=== PATIENT | female | born 1935 | race African-American/Black ===

== ENCOUNTER 2017-08-03 18:56 | Inpatient (IN) | payer MEDICARE, OTHER ==
[~2017-08-03] VITALS: Ht 160 cm; Wt 42.6 kg
[~2017-08-03 18:56] MED LIST: B1 PO; DAILY VITE PO; FOLI-43 PO; HYDR-523 PO; LEVO25TA7 PO
[2017-08-03] MEDS ORDERED: MORPHINE SULFATE 2 MG/ML CPJ (NOT FOR IM USE) IV ONE (20:30)
[2017-08-03 20:57] LABS: CLARITY URINE CLEAR (CLEAR); COLOR URINE YELLOW (YELLOW); KETONES URINE NEGATIVE (NEGATIVE); LEUKOCYTE ESTERASE URINE 3+ (NEGATIVE); NITRITE URINE NEGATIVE (NEGATIVE); OCCULT BLOOD URINE NEGATIVE (NEGATIVE); PROTEIN URINE NEGATIVE (NEGATIVE); SPECIFIC GRAVITY URINE 1.014 (1.005-1.030); UROBILINOGEN URINE 0.2 E.U./dL (0.2-1.0)
[2017-08-03 21:00] LABS: BASOPHILS % 0.2 % (0.0-2.0); EOSINOPHILS % 0.8 % (0.0-5.0); HEMATOCRIT. 40.2 % (36.0-48.0); HEMOGLOBIN. 13.1 g/dL (12.0-16.0); LYMPHOCYTES % 13.1 % (20.0-50.0); MEAN CORPUSCULAR HEMOGLOBIN 30.8 pg (28.0-32.0); MEAN CORPUSCULAR VOLUME 94.6 fL (81.0-99.0); MEAN PLATELET VOLUME 8.7 fl (7.4-10.4); NEUTROPHILS % 77.9 % (40.0-76.0); PLATELET 188 x1000/uL (130-400); RED BLOOD CELL COUNT 4.25 mill/uL (4.2-5.4); RED CELL DISTRIBUTION WIDTH 13.2 % (11.6-14.6)
[2017-08-03 21:06] LABS: INR 1.1; PARTIAL THROMBOPLASTIN TIME 25.4 sec (23.4-31.0)
[2017-08-03 21:08] LABS: CHLORIDE 99 mEq/L (98-107)
[2017-08-04] MEDS ORDERED: MORPHINE SULFATE 1MG/ML 1ML INJ SYR(NEO) IV ONE (00:30)
[2017-08-04] MEDS ORDERED: MORPHINE SULFATE 4 MG/ML CPJ (NOT FOR IM USE) IV NR (01:00)
[2017-08-04] MEDS: DEXT 5%/0.45% NACL KCL 10MEQ/L 1,000 ML IV SCH ×2 (02:13→15:33)
[2017-08-04] MEDS ORDERED: CLONIDINE 0.1MG TABLET PO PRN (02:15)
[2017-08-04] MEDS ORDERED: DOCUSATE SODIUM 100MG CAPSULE PO PRN (02:15)
[2017-08-04] MEDS ORDERED: HYDROCODONE/ACETAMINOPHEN 5/325MG TABLET PO PRN (02:15)
[2017-08-04] MEDS ORDERED: GUAIFENESIN 200MG/10ML SUGAR FREE UDC PO PRN (02:15)
[2017-08-04] MEDS ORDERED: ACETAMINOPHEN 325MG TABLET PO PRN (02:15)
[2017-08-04] MEDS ORDERED: ENOXAPARIN 40MG/0.4ML SYR SUBCUT SCH (02:15)
[2017-08-04] MEDS ORDERED: ONDANSETRON HCL 4MG/2ML VIAL IV PRN (02:15)
[2017-08-04] MEDS: MORPHINE SULFATE 4 MG/ML CPJ (NOT FOR IM USE) IV PRN ×2 (05:31→18:39)
[2017-08-04] MEDS ORDERED: AMLODIPINE 10MG TABLET PO NR (09:30)
[2017-08-04] MEDS: ENOXAPARIN 30MG/0.3ML SYR SUBCUT SCH (10:00)
[2017-08-04 16:00] VITALS: BP 129/63
[2017-08-04 20:00] VITALS: BP 117/60
[2017-08-05] VITALS: BP 122/60
[2017-08-05 04:00] VITALS: BP 107/62
[2017-08-05] MEDS: DEXT 5%/0.45% NACL KCL 10MEQ/L 1,000 ML IV SCH (05:04)
[2017-08-05 07:40] LABS: BASOPHILS % 0.2 % (0.0-2.0); EOSINOPHILS % 0.4 % (0.0-5.0); HEMOGLOBIN. 12.1 g/dL (12.0-16.0); LYMPHOCYTES % 10.8 % (20.0-50.0); MEAN CORPUSCULAR HEMOGLOBIN 31.5 pg (28.0-32.0); MEAN PLATELET VOLUME 9.6 fl (7.4-10.4); MONOCYTES % 10.4 % (2.0-8.0); NEUTROPHILS % 78.2 % (40.0-76.0); PLATELET 163 x1000/uL (130-400); RED BLOOD CELL COUNT 3.83 mill/uL (4.2-5.4)
[2017-08-05 07:43] LABS: CHLORIDE 102 mEq/L (98-107); HDL CHOLESTEROL 72 mg/dL (40-59); LDL CHOLESTEROL 52 mg/dL (5-100); T4 FREE 0.73 ng/dL (0.76-1.46)
[2017-08-05 08:00] VITALS: BP 126/54
[2017-08-05] MEDS: ENOXAPARIN 30MG/0.3ML SYR SUBCUT SCH (08:19)
[2017-08-05] MEDS ORDERED: AMLODIPINE 10MG TABLET PO SCH (09:00)
[2017-08-05] MEDS: AMLODIPINE 5MG TABLET PO SCH (10:00)
[2017-08-05] MEDS: MORPHINE SULFATE 4 MG/ML CPJ (NOT FOR IM USE) IV PRN ×2 (11:46→16:06)
[2017-08-05 12:00] VITALS: BP 126/63
[2017-08-05] MEDS: IPRATROPIUM/ALBUTEROL 0.5-3(2.5)MG/3ML NEB HHN SCH (13:09)
[2017-08-05 16:00] VITALS: BP 107/59
[2017-08-05 20:00] VITALS: BP 123/63
[2017-08-06] VITALS: BP 110/67
[2017-08-06] MEDS: DEXT 5%/0.45% NACL KCL 10MEQ/L 1,000 ML IV SCH ×2 (02:09→17:36)
[2017-08-06 04:00] VITALS: BP 120/85
[2017-08-06 08:00] VITALS: BP 120/54
[2017-08-06] MEDS: ENOXAPARIN 30MG/0.3ML SYR SUBCUT SCH (08:05)
[2017-08-06] MEDS: AMLODIPINE 5MG TABLET PO SCH (08:05)
[2017-08-06] MEDS: MORPHINE SULFATE 4 MG/ML CPJ (NOT FOR IM USE) IV PRN (09:02)
[2017-08-06] MEDS: IPRATROPIUM/ALBUTEROL 0.5-3(2.5)MG/3ML NEB HHN SCH ×2 (09:41→20:00)
[2017-08-06] MEDS: POTASSIUM CHLORIDE 20MEQ TABLET SR PO SCH (10:00)
[2017-08-06] MEDS: FUROSEMIDE 40MG TABLET PO SCH (10:00)
[2017-08-06] MEDS ORDERED: KCL 10MEQ/50ML PREMIX 50 ML IV NR (10:30)
[2017-08-06] MEDS ORDERED: NORMAL SALINE 0.9% 10 ML SYR ONE (11:04)
[2017-08-06] MEDS ORDERED: BUPIVACAINE HCL/EPINEPHRINE/PF 0.5%/0.0005 10ML ONE (11:05)
[2017-08-06] MEDS ORDERED: BACITRACIN 50,000 UNITS/VIAL ONE (11:05)
[2017-08-06] MEDS ORDERED: MIDAZOLAM HCL 2 MG/2 ML VIAL ONE (12:50)
[2017-08-06] MEDS ORDERED: PROPOFOL 10MG/ML 100ML 0 ML IV ONE (12:50)
[2017-08-06] MEDS ORDERED: FENTANYL CITRATE/PF 50MCG/ML 2ML VIAL ONE (12:50)
[2017-08-06] MEDS ORDERED: DOCUSATE SODIUM 100MG CAPSULE PO SCH (13:15)
[2017-08-06] MEDS ORDERED: ACETAMINOPHEN 325MG TABLET PO PRN (13:15)
[2017-08-06] MEDS ORDERED: MORPHINE SULFATE 4 MG/ML CPJ (NOT FOR IM USE) IV PRN (13:15)
[2017-08-06] MEDS ORDERED: MAGNESIUM HYDROXIDE 400MG/5ML 30ML UDC PO PRN (13:15)
[2017-08-06] MEDS ORDERED: PROPOFOL 200MG/20ML VIAL IV ONE (13:22)
[2017-08-06] MEDS ORDERED: SKIN ADHESIVE 0.7 GM EA TOP ONE (14:28)
[2017-08-06 16:00] VITALS: BP 110/52
[2017-08-06] MEDS ORDERED: MEPERIDINE HCL/PF 25MG/ML CPJ IV PRN (16:00)
[2017-08-06] MEDS ORDERED: ONDANSETRON HCL 4MG/2ML VIAL IV PRN (16:00)
[2017-08-06] MEDS ORDERED: FENTANYL CITRATE/PF 50MCG/ML 2ML VIAL IV PRN (16:00)
[2017-08-06] MEDS ORDERED: MORPHINE SULFATE 2 MG/ML CPJ (NOT FOR IM USE) IV PRN (16:00)
[2017-08-06 18:21] LABS: CHLORIDE 107 mEq/L (98-107)
[2017-08-06] MEDS: CEFAZOLIN 1000MG PREMIX 50 ML IV SCH ×2 (18:35→22:56)
[2017-08-06 20:00] VITALS: BP 117/58
[2017-08-06] MEDS: HYDROCODONE/ACETAMINOPHEN 5/325MG TABLET PO PRN (23:05)
[2017-08-07] VITALS: BP 106/59
[2017-08-07] MEDS: IPRATROPIUM/ALBUTEROL 0.5-3(2.5)MG/3ML NEB HHN SCH ×4 (00:45→20:37)
[2017-08-07 04:00] VITALS: BP 115/56
[2017-08-07] MEDS: CEFAZOLIN 1000MG PREMIX 50 ML IV SCH ×3 (06:19→22:13)
[2017-08-07] MEDS: DEXT 5%/0.45% NACL KCL 10MEQ/L 1,000 ML IV SCH ×2 (06:19→22:17)
[2017-08-07 06:51] LABS: BASOPHILS % 0.3 % (0.0-2.0); HEMATOCRIT. 30.4 % (36.0-48.0); HEMOGLOBIN. 10.2 g/dL (12.0-16.0); LYMPHOCYTES % 13.7 % (20.0-50.0); MEAN CORPUSCULAR HEMOGLOBIN 31.7 pg (28.0-32.0); MEAN CORPUSCULAR VOLUME 94.5 fL (81.0-99.0); MEAN PLATELET VOLUME 9.6 fl (7.4-10.4); PLATELET 139 x1000/uL (130-400); RED BLOOD CELL COUNT 3.22 mill/uL (4.2-5.4); RED CELL DISTRIBUTION WIDTH 13.4 % (11.6-14.6)
[2017-08-07 07:31] LABS: CHLORIDE 105 mEq/L (98-107)
[2017-08-07 08:00] VITALS: BP 105/51
[2017-08-07] MEDS ORDERED: ENOXAPARIN 30MG/0.3ML SYR SUBCUT SCH (09:00)
[2017-08-07] MEDS ORDERED: DOCUSATE SODIUM 250MG CAPSULE PO SCH (09:15)
[2017-08-07] MEDS: FUROSEMIDE 40MG TABLET PO SCH (09:30)
[2017-08-07] MEDS: AMLODIPINE 5MG TABLET PO SCH (09:31)
[2017-08-07] MEDS: POTASSIUM CHLORIDE 20MEQ TABLET SR PO SCH (09:33)
[2017-08-07] MEDS: ENOXAPARIN 30MG/0.3ML SYR SUBCUT SCH (09:41)
[2017-08-07 12:00] VITALS: BP 106/51
[2017-08-07] MEDS: HYDROCODONE/ACETAMINOPHEN 5/325MG TABLET PO PRN ×2 (12:47→20:53)
[2017-08-07 16:00] VITALS: BP 114/47
[2017-08-07 20:00] VITALS: BP 98/54
[2017-08-08] VITALS: BP 100/56
[2017-08-08] MEDS: IPRATROPIUM/ALBUTEROL 0.5-3(2.5)MG/3ML NEB HHN SCH ×4 (00:59→21:31)
[2017-08-08 04:00] VITALS: BP 107/51
[2017-08-08] MEDS: CEFAZOLIN 1000MG PREMIX 50 ML IV SCH ×3 (05:52→21:10)
[2017-08-08 06:38] LABS: BASOPHILS % 0.2 % (0.0-2.0); EOSINOPHILS % 4.1 % (0.0-5.0); HEMATOCRIT. 28.2 % (36.0-48.0); HEMOGLOBIN. 9.5 g/dL (12.0-16.0); LYMPHOCYTES % 16.1 % (20.0-50.0); MEAN CORPUSCULAR HEMOGLOBIN 31.9 pg (28.0-32.0); MEAN CORPUSCULAR VOLUME 94.8 fL (81.0-99.0); MEAN PLATELET VOLUME 9.2 fl (7.4-10.4); MONOCYTES % 11.4 % (2.0-8.0); NEUTROPHILS % 68.2 % (40.0-76.0); PLATELET 145 x1000/uL (130-400); RED BLOOD CELL COUNT 2.98 mill/uL (4.2-5.4); RED CELL DISTRIBUTION WIDTH 13.4 % (11.6-14.6)
[2017-08-08 07:25] LABS: CHLORIDE 105 mEq/L (98-107)
[2017-08-08 08:00] VITALS: BP 97/47
[2017-08-08] MEDS: DEXT 5%/0.45% NACL KCL 10MEQ/L 1,000 ML IV SCH (08:20)
[2017-08-08] MEDS: HYDROCODONE/ACETAMINOPHEN 5/325MG TABLET PO PRN ×3 (08:54→17:34)
[2017-08-08] MEDS: POTASSIUM CHLORIDE 20MEQ TABLET SR PO SCH (08:54)
[2017-08-08] MEDS: DOCUSATE SODIUM 100MG CAPSULE PO SCH ×2 (08:55→17:31)
[2017-08-08] MEDS: ENOXAPARIN 30MG/0.3ML SYR SUBCUT SCH (08:57)
[2017-08-08] MEDS: AMLODIPINE 5MG TABLET PO SCH (09:00)
[2017-08-08] MEDS ORDERED: POTASSIUM CHLORIDE 20MEQ/PACKET PO NR (09:45)
[2017-08-08 12:00] VITALS: BP 112/59
[2017-08-08 14:00] VITALS: BP 98/77
[2017-08-08 21:07] VITALS: BP 106/45
[2017-08-08] MEDS: ASCORBIC ACID 250 MG TABLET PO SCH (21:10)
[2017-08-08] MEDS: POLYETHYLENE GLYCOL 3350 (17GM) 1 DOSE PACK PO SCH (21:10)
[2017-08-09] VITALS (7 sets, daily range): BP systolic 110–132; BP diastolic 46–88
[2017-08-09] MEDS: IPRATROPIUM/ALBUTEROL 0.5-3(2.5)MG/3ML NEB HHN SCH ×4 (03:45→19:51)
[2017-08-09] MEDS: CEFAZOLIN 1000MG PREMIX 50 ML IV SCH ×3 (05:25→22:10)
[2017-08-09] MEDS: HYDROCODONE/ACETAMINOPHEN 5/325MG TABLET PO PRN ×3 (06:45→22:10)
[2017-08-09] MEDS: AMLODIPINE 5MG TABLET PO SCH (08:22)
[2017-08-09] MEDS: DOCUSATE SODIUM 100MG CAPSULE PO SCH ×2 (08:28→16:23)
[2017-08-09] MEDS: MULTIVITAMINS,THER W-MINERALS TABLET PO SCH (08:28)
[2017-08-09] MEDS: POTASSIUM CHLORIDE 20MEQ TABLET SR PO SCH (08:28)
[2017-08-09] MEDS: ZINC SULFATE 220 MG ( 50 ) CAPSULE PO SCH (08:29)
[2017-08-09] MEDS: ASCORBIC ACID 250 MG TABLET PO SCH ×2 (08:29→22:08)
[2017-08-09] MEDS: POLYETHYLENE GLYCOL 3350 (17GM) 1 DOSE PACK PO SCH (21:00)
[2017-08-10] VITALS: BP 110/60
[2017-08-10] MEDS: IPRATROPIUM/ALBUTEROL 0.5-3(2.5)MG/3ML NEB HHN SCH ×2 (00:47→10:50)
[2017-08-10 04:00] VITALS: BP 122/57
[2017-08-10] MEDS: CEFAZOLIN 1000MG PREMIX 50 ML IV SCH (06:03)
[2017-08-10 07:32] LABS: CHLORIDE 104 mEq/L (98-107); PHOSPHORUS 2.9 mg/dL (2.5-4.9)
[2017-08-10 07:42] LABS: HEMATOCRIT. 27.6 % (36.0-48.0); MEAN CORPUSCULAR HEMOGLOBIN 30.6 pg (28.0-32.0); MEAN CORPUSCULAR VOLUME 93.9 fL (81.0-99.0); MEAN PLATELET VOLUME 8.5 fl (7.4-10.4); PLATELET 237 x1000/uL (130-400); RED BLOOD CELL COUNT 2.94 mill/uL (4.2-5.4); RED CELL DISTRIBUTION WIDTH 13.3 % (11.6-14.6)
[2017-08-10 08:00] VITALS: BP 129/57
[2017-08-10] MEDS: DOCUSATE SODIUM 100MG CAPSULE PO SCH (08:11)
[2017-08-10] MEDS: ZINC SULFATE 220 MG ( 50 ) CAPSULE PO SCH (08:11)
[2017-08-10] MEDS: MULTIVITAMINS,THER W-MINERALS TABLET PO SCH (08:11)
[2017-08-10] MEDS: ASCORBIC ACID 250 MG TABLET PO SCH (08:11)
[2017-08-10] MEDS: AMLODIPINE 5MG TABLET PO SCH (08:11)
[2017-08-10] MEDS: POTASSIUM CHLORIDE 20MEQ TABLET SR PO SCH (08:11)
[2017-08-10 08:17] LABS: PHOSPHORUS 2.6 mg/dL (2.5-4.9)
[2017-08-10 10:39] VITALS: BP 129/57
[2017-08-10 16:53] LABS: ATYPICAL LYMPHOCYTES 1; PLATELET ESTIMATE NORMAL
== END 2017-08-10 12:15 | DRG 481 ==
LOC: ER 19:17 → EDBEDREQDT 08-04 00:04 → EDBEDREQ 08-04 00:04 → EDBEDREQTM 08-04 00:04 → 6EST 08-04 01:38 → EDBEDREQTM 08-04 01:41 → EDBEDREQ 08-04 01:41 → SUPCPDRO 08-04 02:13 → ENRESERV 08-04 13:56
PROVIDERS: ADMIT Internal Medicine; ATTEND Internal Medicine
PROC: 0QS636Z Reposition Right Upper Femur with Intramedullary Internal Fixation Device, Percutaneous Approach (ICD-10-PCS; principal; 2017-08-06 07:30)
DX: S72.141A Displaced intertrochanteric fracture of right femur, initial encounter for closed fracture (principal); I42.9 Cardiomyopathy, unspecified; E44.0 Moderate protein-calorie malnutrition; E87.5 Hyperkalemia; I11.0 Hypertensive heart disease with heart failure; I50.20 Unspecified systolic (congestive) heart failure; Z68.1 Body mass index [BMI] 19.9 or less, adult; J44.9 Chronic obstructive pulmonary disease, unspecified; D64.9 Anemia, unspecified; E87.6 Hypokalemia; W18.39XA Other fall on same level, initial encounter; F10.20 Alcohol dependence, uncomplicated; E03.9 Hypothyroidism, unspecified; F17.210 Nicotine dependence, cigarettes, uncomplicated; M06.9 Rheumatoid arthritis, unspecified; M19.90 Unspecified osteoarthritis, unspecified site; M81.0 Age-related osteoporosis without current pathological fracture; Z79.899 Other long term (current) drug therapy; Y93.89 Activity, other specified; Y92.89 Other specified places as the place of occurrence of the external cause; Y99.8 Other external cause status
CPT/HCPCS: 36415; 51702; 71045; 73502; 73503; 73700; 80048; 80053; 80061; 80069; 80076; 81001; 83036; 83540; 83550; 83735; 84100; 84439; 84443; 84550; 85025; 85610; 85730; 86850; 86900; 87086; 92523; 92610; 93005; 93306; 94640; 94664; 96372; 96374; 96376; 97110; 97116; 97162; 97166; 97530; 99285; A4216; C1893; J0171; J0690; J1650; J2250; J2270; J2704; J3010; J3480; J3490; J7050; J7620

== ENCOUNTER 2017-08-10 12:51 | Inpatient (IN) | payer MEDICARE, OTHER ==
[~2017-08-10] VITALS: Ht 160 cm; Wt 42.6 kg
[2017-08-10 13:00] VITALS: BP 120/51
[2017-08-10] MEDS ORDERED: CLONIDINE 0.1MG TABLET PO PRN (13:30)
[2017-08-10] MEDS ORDERED: DOCUSATE SODIUM 250MG CAPSULE PO PRN (13:30)
[2017-08-10] MEDS ORDERED: ONDANSETRON HCL 4MG/2ML VIAL IV PRN (13:30)
[2017-08-10] MEDS ORDERED: MAGNESIUM HYDROXIDE 400MG/5ML 30ML UDC PO PRN (13:30)
[2017-08-10] MEDS ORDERED: IPRATROPIUM/ALBUTEROL 0.5-3(2.5)MG/3ML NEB ONE (13:58)
[2017-08-10] MEDS: ACETAMINOPHEN 325MG TABLET PO PRN (15:07)
[2017-08-10 15:18] VITALS: BP 109/59
[2017-08-10] MEDS: DOCUSATE SODIUM 100MG CAPSULE PO SCH (17:00)
[2017-08-10 20:00] VITALS: BP 128/51
[2017-08-10] MEDS: POLYETHYLENE GLYCOL 3350 (17GM) 1 DOSE PACK PO SCH (20:25)
[2017-08-10] MEDS: HYDROCODONE/ACETAMINOPHEN 5/325MG TABLET PO PRN (20:26)
[2017-08-10] MEDS: ASCORBIC ACID 250 MG TABLET PO SCH (20:26)
[2017-08-10] MEDS: SODIUM CHLORIDE 0.9% INJ 3ML FLUSH IVF SCH (21:05)
[2017-08-10] MEDS: IPRATROPIUM/ALBUTEROL 0.5-3(2.5)MG/3ML NEB HHN SCH (21:18)
[2017-08-11] MEDS: IPRATROPIUM/ALBUTEROL 0.5-3(2.5)MG/3ML NEB HHN SCH ×4 (01:21→22:00)
[2017-08-11] MEDS: SODIUM CHLORIDE 0.9% INJ 3ML FLUSH IVF SCH ×3 (05:19→22:00)
[2017-08-11] MEDS: ACETAMINOPHEN 325MG TABLET PO PRN (06:05)
[2017-08-11 06:44] LABS: BASOPHILS % 0.3 % (0.0-2.0); EOSINOPHILS % 4.8 % (0.0-5.0); HEMATOCRIT. 27.6 % (36.0-48.0); LYMPHOCYTES % 18.9 % (20.0-50.0); MEAN CORPUSCULAR HEMOGLOBIN 30.4 pg (28.0-32.0); MEAN CORPUSCULAR VOLUME 93.4 fL (81.0-99.0); MEAN PLATELET VOLUME 8.4 fl (7.4-10.4); MONOCYTES % 11.1 % (2.0-8.0); NEUTROPHILS % 64.9 % (40.0-76.0); PLATELET 310 x1000/uL (130-400); RED BLOOD CELL COUNT 2.96 mill/uL (4.2-5.4); RED CELL DISTRIBUTION WIDTH 13.1 % (11.6-14.6)
[2017-08-11 07:26] LABS: CHLORIDE 104 mEq/L (98-107); PHOSPHORUS 3.3 mg/dL (2.5-4.9)
[2017-08-11 08:31] VITALS: BP 95/46
[2017-08-11] MEDS: AMLODIPINE 5MG TABLET PO SCH (08:32)
[2017-08-11] MEDS: HYDROCODONE/ACETAMINOPHEN 5/325MG TABLET PO PRN ×2 (08:42→21:14)
[2017-08-11] MEDS ORDERED: POTASSIUM CHLORIDE 20MEQ TABLET SR PO SCH (09:00)
[2017-08-11] MEDS: DOCUSATE SODIUM 100MG CAPSULE PO SCH ×2 (09:00→16:34)
[2017-08-11] MEDS: ZINC SULFATE 220 MG ( 50 ) CAPSULE PO SCH (09:25)
[2017-08-11] MEDS: MULTIVITAMINS,THER W-MINERALS TABLET PO SCH (09:25)
[2017-08-11] MEDS: ASCORBIC ACID 250 MG TABLET PO SCH ×2 (09:25→21:13)
[2017-08-11] MEDS: FOLIC ACID/VITAMIN B COMP W-C TABLET PO SCH (12:01)
[2017-08-11] MEDS: FERROUS SULFATE 300MG/5ML UDC PO SCH (12:01)
[2017-08-11 20:00] VITALS: BP 108/52
[2017-08-11] MEDS: POLYETHYLENE GLYCOL 3350 (17GM) 1 DOSE PACK PO SCH (21:00)
[2017-08-12] MEDS: IPRATROPIUM/ALBUTEROL 0.5-3(2.5)MG/3ML NEB HHN SCH ×4 (04:15→22:10)
[2017-08-12] MEDS: SODIUM CHLORIDE 0.9% INJ 3ML FLUSH IVF SCH ×3 (06:00→22:33)
[2017-08-12 08:00] VITALS: BP 111/51
[2017-08-12] MEDS: DOCUSATE SODIUM 100MG CAPSULE PO SCH ×2 (08:29→18:32)
[2017-08-12] MEDS: MULTIVITAMINS,THER W-MINERALS TABLET PO SCH (08:29)
[2017-08-12] MEDS: FOLIC ACID/VITAMIN B COMP W-C TABLET PO SCH (08:29)
[2017-08-12] MEDS: ASCORBIC ACID 250 MG TABLET PO SCH ×2 (08:29→22:33)
[2017-08-12] MEDS: AMLODIPINE 5MG TABLET PO SCH (08:30)
[2017-08-12] MEDS: ZINC SULFATE 220 MG ( 50 ) CAPSULE PO SCH (08:30)
[2017-08-12] MEDS: HYDROCODONE/ACETAMINOPHEN 5/325MG TABLET PO PRN ×2 (08:31→14:11)
[2017-08-12] MEDS: FERROUS SULFATE 300MG/5ML UDC PO SCH (08:31)
[2017-08-12 20:00] VITALS: BP 114/44
[2017-08-12] MEDS: POLYETHYLENE GLYCOL 3350 (17GM) 1 DOSE PACK PO SCH (22:31)
[2017-08-12] MEDS: ACETAMINOPHEN 325MG TABLET PO PRN (22:32)
[2017-08-13] MEDS: IPRATROPIUM/ALBUTEROL 0.5-3(2.5)MG/3ML NEB HHN SCH ×5 (02:36→21:15)
[2017-08-13] MEDS: HYDROCODONE/ACETAMINOPHEN 5/325MG TABLET PO PRN ×2 (03:19→20:49)
[2017-08-13 08:09] VITALS: BP 97/41
[2017-08-13] MEDS: FOLIC ACID/VITAMIN B COMP W-C TABLET PO SCH (08:13)
[2017-08-13] MEDS: ZINC SULFATE 220 MG ( 50 ) CAPSULE PO SCH (08:13)
[2017-08-13] MEDS: AMLODIPINE 5MG TABLET PO SCH (08:13)
[2017-08-13] MEDS: ASCORBIC ACID 250 MG TABLET PO SCH ×2 (08:13→20:58)
[2017-08-13] MEDS: DOCUSATE SODIUM 100MG CAPSULE PO SCH ×2 (08:13→17:00)
[2017-08-13] MEDS: FERROUS SULFATE 300MG/5ML UDC PO SCH (08:13)
[2017-08-13] MEDS: ACETAMINOPHEN 325MG TABLET PO PRN ×2 (08:14→14:02)
[2017-08-13] MEDS: MULTIVITAMINS,THER W-MINERALS TABLET PO SCH (12:33)
[2017-08-13] MEDS: THIAMINE HCL 100MG TABLET PO SCH (14:02)
[2017-08-13 20:00] VITALS: BP 128/60
[2017-08-13] MEDS: GUAIFENESIN 200MG/10ML SUGAR FREE UDC PO PRN (21:07)
[2017-08-13] MEDS: POLYETHYLENE GLYCOL 3350 (17GM) 1 DOSE PACK PO SCH (21:07)
[2017-08-14] MEDS: IPRATROPIUM/ALBUTEROL 0.5-3(2.5)MG/3ML NEB HHN SCH ×3 (01:12→14:10)
[2017-08-14 08:00] VITALS: BP 95/50
[2017-08-14] MEDS: MULTIVITAMINS,THER W-MINERALS TABLET PO SCH (08:41)
[2017-08-14] MEDS: THIAMINE HCL 100MG TABLET PO SCH (08:41)
[2017-08-14] MEDS: FERROUS SULFATE 300MG/5ML UDC PO SCH (08:42)
[2017-08-14] MEDS: ASCORBIC ACID 250 MG TABLET PO SCH ×2 (08:42→20:59)
[2017-08-14] MEDS: FOLIC ACID/VITAMIN B COMP W-C TABLET PO SCH (08:42)
[2017-08-14] MEDS: DOCUSATE SODIUM 100MG CAPSULE PO SCH ×2 (08:42→16:10)
[2017-08-14] MEDS: AMLODIPINE 5MG TABLET PO SCH (08:43)
[2017-08-14] MEDS: ZINC SULFATE 220 MG ( 50 ) CAPSULE PO SCH (08:43)
[2017-08-14] MEDS: ACETAMINOPHEN 325MG TABLET PO PRN ×2 (08:44→16:10)
[2017-08-14] MEDS ORDERED: MULTIVITAMINS,THER W-MINERALS TABLET PO SCH (09:00)
[2017-08-14] MEDS ORDERED: FOLIC ACID 1MG TABLET PO SCH (09:00)
[2017-08-14 20:00] VITALS: BP 113/44
[2017-08-14] MEDS: POLYETHYLENE GLYCOL 3350 (17GM) 1 DOSE PACK PO SCH (20:59)
[2017-08-14] MEDS: GUAIFENESIN 200MG/10ML SUGAR FREE UDC PO PRN (21:16)
[2017-08-15] MEDS: IPRATROPIUM/ALBUTEROL 0.5-3(2.5)MG/3ML NEB HHN SCH ×4 (02:36→21:05)
[2017-08-15 08:00] VITALS: BP 121/51
[2017-08-15] MEDS: ZINC SULFATE 220 MG ( 50 ) CAPSULE PO SCH (08:34)
[2017-08-15] MEDS: FERROUS SULFATE 300MG/5ML UDC PO SCH (08:34)
[2017-08-15] MEDS: FOLIC ACID/VITAMIN B COMP W-C TABLET PO SCH (08:35)
[2017-08-15] MEDS: THIAMINE HCL 100MG TABLET PO SCH (08:35)
[2017-08-15] MEDS: DOCUSATE SODIUM 100MG CAPSULE PO SCH ×2 (08:35→17:28)
[2017-08-15] MEDS: MULTIVITAMINS,THER W-MINERALS TABLET PO SCH (08:35)
[2017-08-15] MEDS: AMLODIPINE 5MG TABLET PO SCH (08:35)
[2017-08-15] MEDS: ACETAMINOPHEN 325MG TABLET PO PRN ×2 (08:35→22:57)
[2017-08-15] MEDS: ASCORBIC ACID 250 MG TABLET PO SCH ×2 (08:36→21:07)
[2017-08-15] MEDS: HYDROCODONE/ACETAMINOPHEN 5/325MG TABLET PO PRN (11:15)
[2017-08-15] MEDS ORDERED: NON FORMULARY PATIENT HOME MED EA XX PRN ×2 (18:45→19:00)
[2017-08-15 20:00] VITALS: BP 113/44
[2017-08-15] MEDS: POLYETHYLENE GLYCOL 3350 (17GM) 1 DOSE PACK PO SCH (21:00)
[2017-08-15] MEDS: GUAIFENESIN 200MG/10ML SUGAR FREE UDC PO PRN (22:59)
[2017-08-15] MEDS ORDERED: [UNRECOGNIZED DRUG - MIXTURE] TOP PRN (23:15)
[2017-08-16] MEDS: IPRATROPIUM/ALBUTEROL 0.5-3(2.5)MG/3ML NEB HHN SCH ×4 (01:18→22:09)
[2017-08-16] MEDS: ACETAMINOPHEN 325MG TABLET PO PRN ×2 (05:49→21:21)
[2017-08-16 08:10] VITALS: BP 115/49
[2017-08-16] MEDS: THIAMINE HCL 100MG TABLET PO SCH (08:37)
[2017-08-16] MEDS: ZINC SULFATE 220 MG ( 50 ) CAPSULE PO SCH (08:37)
[2017-08-16] MEDS: DOCUSATE SODIUM 100MG CAPSULE PO SCH ×2 (08:37→17:17)
[2017-08-16] MEDS: FERROUS SULFATE 300MG/5ML UDC PO SCH (08:37)
[2017-08-16] MEDS: MULTIVITAMINS,THER W-MINERALS TABLET PO SCH (08:37)
[2017-08-16] MEDS: FOLIC ACID/VITAMIN B COMP W-C TABLET PO SCH (08:37)
[2017-08-16] MEDS: ASCORBIC ACID 250 MG TABLET PO SCH ×2 (08:38→21:20)
[2017-08-16] MEDS: AMLODIPINE 5MG TABLET PO SCH (08:38)
[2017-08-16 14:10] VITALS: BP 129/49
[2017-08-16] MEDS: HYDROCODONE/ACETAMINOPHEN 5/325MG TABLET PO PRN (14:21)
[2017-08-16 20:00] VITALS: BP 124/53
[2017-08-16] MEDS: POLYETHYLENE GLYCOL 3350 (17GM) 1 DOSE PACK PO SCH (21:00)
[2017-08-17] MEDS: IPRATROPIUM/ALBUTEROL 0.5-3(2.5)MG/3ML NEB HHN SCH ×4 (03:43→19:35)
[2017-08-17] MEDS: ACETAMINOPHEN 325MG TABLET PO PRN (06:45)
[2017-08-17 08:00] VITALS: BP 112/37
[2017-08-17] MEDS: ZINC SULFATE 220 MG ( 50 ) CAPSULE PO SCH (08:22)
[2017-08-17] MEDS: ASCORBIC ACID 250 MG TABLET PO SCH ×2 (08:22→20:10)
[2017-08-17] MEDS: MULTIVITAMINS,THER W-MINERALS TABLET PO SCH (08:22)
[2017-08-17] MEDS: FERROUS SULFATE 300MG/5ML UDC PO SCH (08:22)
[2017-08-17] MEDS: FOLIC ACID/VITAMIN B COMP W-C TABLET PO SCH (08:23)
[2017-08-17] MEDS: THIAMINE HCL 100MG TABLET PO SCH (08:23)
[2017-08-17] MEDS: DOCUSATE SODIUM 100MG CAPSULE PO SCH ×2 (08:23→17:06)
[2017-08-17] MEDS: AMLODIPINE 5MG TABLET PO SCH (08:23)
[2017-08-17 09:19] LABS: BASOPHILS % 0.2 % (0.0-2.0); EOSINOPHILS % 2.5 % (0.0-5.0); HEMATOCRIT. 27.5 % (36.0-48.0); HEMOGLOBIN. 8.9 g/dL (12.0-16.0); LYMPHOCYTES % 8.6 % (20.0-50.0); MEAN CORPUSCULAR HEMOGLOBIN 30.7 pg (28.0-32.0); MEAN CORPUSCULAR VOLUME 94.7 fL (81.0-99.0); MEAN PLATELET VOLUME 8.2 fl (7.4-10.4); MONOCYTES % 4.8 % (2.0-8.0); NEUTROPHILS % 83.9 % (40.0-76.0); PLATELET 486 x1000/uL (130-400); RED BLOOD CELL COUNT 2.91 mill/uL (4.2-5.4); RED CELL DISTRIBUTION WIDTH 13.7 % (11.6-14.6)
[2017-08-17 16:20] VITALS: BP 114/51
[2017-08-17] MEDS: HYDROCODONE/ACETAMINOPHEN 5/325MG TABLET PO PRN ×2 (16:27→22:54)
[2017-08-17] MEDS: POLYETHYLENE GLYCOL 3350 (17GM) 1 DOSE PACK PO SCH (20:11)
[2017-08-17 20:38] VITALS: BP 115/67
[2017-08-18] MEDS: IPRATROPIUM/ALBUTEROL 0.5-3(2.5)MG/3ML NEB HHN SCH ×4 (03:40→20:57)
[2017-08-18] MEDS: ACETAMINOPHEN 325MG TABLET PO PRN ×3 (06:39→21:39)
[2017-08-18 08:00] VITALS: BP 122/50
[2017-08-18] MEDS: AMLODIPINE 5MG TABLET PO SCH (09:00)
[2017-08-18] MEDS: DOCUSATE SODIUM 100MG CAPSULE PO SCH ×3 (09:24→17:50)
[2017-08-18] MEDS: FOLIC ACID/VITAMIN B COMP W-C TABLET PO SCH (09:25)
[2017-08-18] MEDS: ZINC SULFATE 220 MG ( 50 ) CAPSULE PO SCH (09:25)
[2017-08-18] MEDS: FERROUS SULFATE 300MG/5ML UDC PO SCH (09:25)
[2017-08-18] MEDS: ASCORBIC ACID 250 MG TABLET PO SCH ×2 (09:26→21:39)
[2017-08-18] MEDS: MULTIVITAMINS,THER W-MINERALS TABLET PO SCH (09:26)
[2017-08-18] MEDS: THIAMINE HCL 100MG TABLET PO SCH (09:26)
[2017-08-18 20:00] VITALS: BP 111/44
[2017-08-18] MEDS: POLYETHYLENE GLYCOL 3350 (17GM) 1 DOSE PACK PO SCH (21:00)
[2017-08-19] MEDS: IPRATROPIUM/ALBUTEROL 0.5-3(2.5)MG/3ML NEB HHN SCH ×4 (02:17→21:32)
[2017-08-19 08:00] VITALS: BP 120/51
[2017-08-19] MEDS: ZINC SULFATE 220 MG ( 50 ) CAPSULE PO SCH (08:22)
[2017-08-19] MEDS: FOLIC ACID/VITAMIN B COMP W-C TABLET PO SCH (08:22)
[2017-08-19] MEDS: MULTIVITAMINS,THER W-MINERALS TABLET PO SCH (08:22)
[2017-08-19] MEDS: ASCORBIC ACID 250 MG TABLET PO SCH ×2 (08:23→22:17)
[2017-08-19] MEDS: DOCUSATE SODIUM 100MG CAPSULE PO SCH ×2 (08:23→16:57)
[2017-08-19] MEDS: THIAMINE HCL 100MG TABLET PO SCH (08:23)
[2017-08-19] MEDS: FERROUS SULFATE 300MG/5ML UDC PO SCH (08:23)
[2017-08-19] MEDS: AMLODIPINE 5MG TABLET PO SCH (08:25)
[2017-08-19] MEDS: ACETAMINOPHEN 325MG TABLET PO PRN ×3 (11:26→22:46)
[2017-08-19 20:00] VITALS: BP 104/44
[2017-08-19] MEDS: POLYETHYLENE GLYCOL 3350 (17GM) 1 DOSE PACK PO SCH (21:00)
[2017-08-19] MEDS: GUAIFENESIN 200MG/10ML SUGAR FREE UDC PO PRN (22:17)
[2017-08-20] MEDS: IPRATROPIUM/ALBUTEROL 0.5-3(2.5)MG/3ML NEB HHN SCH ×3 (01:13→20:20)
[2017-08-20 08:00] VITALS: BP 119/52
[2017-08-20] MEDS: FOLIC ACID/VITAMIN B COMP W-C TABLET PO SCH (08:44)
[2017-08-20] MEDS: ZINC SULFATE 220 MG ( 50 ) CAPSULE PO SCH (08:44)
[2017-08-20] MEDS: THIAMINE HCL 100MG TABLET PO SCH (08:45)
[2017-08-20] MEDS: MULTIVITAMINS,THER W-MINERALS TABLET PO SCH (08:45)
[2017-08-20] MEDS: ASCORBIC ACID 250 MG TABLET PO SCH ×2 (08:45→20:33)
[2017-08-20] MEDS: FERROUS SULFATE 300MG/5ML UDC PO SCH (08:45)
[2017-08-20] MEDS: DOCUSATE SODIUM 100MG CAPSULE PO SCH ×2 (08:45→17:18)
[2017-08-20] MEDS: HYDROCODONE/ACETAMINOPHEN 5/325MG TABLET PO PRN (08:47)
[2017-08-20] MEDS: AMLODIPINE 5MG TABLET PO SCH (08:48)
[2017-08-20] MEDS ORDERED: HYDROCODONE/ACETAMINOPHEN 5/325MG TABLET PO PRN (15:30)
[2017-08-20 20:00] VITALS: BP 102/65
[2017-08-20] MEDS: ACETAMINOPHEN 325MG TABLET PO PRN (20:33)
[2017-08-20] MEDS: POLYETHYLENE GLYCOL 3350 (17GM) 1 DOSE PACK PO SCH (20:33)
[2017-08-21] MEDS: IPRATROPIUM/ALBUTEROL 0.5-3(2.5)MG/3ML NEB HHN SCH ×2 (02:05→07:59)
[2017-08-21 08:00] VITALS: BP 107/49
[2017-08-21] MEDS: THIAMINE HCL 100MG TABLET PO SCH (08:35)
[2017-08-21] MEDS: FOLIC ACID/VITAMIN B COMP W-C TABLET PO SCH (08:35)
[2017-08-21] MEDS: ASCORBIC ACID 250 MG TABLET PO SCH (08:36)
[2017-08-21] MEDS: AMLODIPINE 5MG TABLET PO SCH (08:36)
[2017-08-21] MEDS: FERROUS SULFATE 300MG/5ML UDC PO SCH (08:36)
[2017-08-21] MEDS: DOCUSATE SODIUM 100MG CAPSULE PO SCH (08:36)
[2017-08-21] MEDS: ZINC SULFATE 220 MG ( 50 ) CAPSULE PO SCH (08:36)
[2017-08-21] MEDS: MULTIVITAMINS,THER W-MINERALS TABLET PO SCH (08:36)
[2017-08-21 10:42] VITALS: BP 107/50
== END 2017-08-21 11:25 | disposition home or self-care (01) | DRG 536 ==
PROVIDERS: ADMIT Psychiatry & Neurology Neurology; ATTEND Internal Medicine
DX: S72.141A Displaced intertrochanteric fracture of right femur, initial encounter for closed fracture (principal); R64 Cachexia; I42.9 Cardiomyopathy, unspecified; E46 Unspecified protein-calorie malnutrition; I11.0 Hypertensive heart disease with heart failure; I50.9 Heart failure, unspecified; J44.9 Chronic obstructive pulmonary disease, unspecified; J98.11 Atelectasis; Z68.1 Body mass index [BMI] 19.9 or less, adult; D64.9 Anemia, unspecified; M19.90 Unspecified osteoarthritis, unspecified site; E03.9 Hypothyroidism, unspecified; M81.0 Age-related osteoporosis without current pathological fracture; F10.20 Alcohol dependence, uncomplicated; Y90.9 Presence of alcohol in blood, level not specified; R53.81 Other malaise; R26.9 Unspecified abnormalities of gait and mobility; F32.9 Major depressive disorder, single episode, unspecified; K21.9 Gastro-esophageal reflux disease without esophagitis; Z72.0 Tobacco use; W19.XXXA Unspecified fall, initial encounter; Y93.89 Activity, other specified; Y92.090 Kitchen in other non-institutional residence as the place of occurrence of the external cause; Y99.8 Other external cause status; M13.0 Polyarthritis, unspecified
CPT/HCPCS: 36415; 73502; 80053; 84100; 85025; 92523; 93970; 94640; 97110; 97112; 97116; 97162; 97166; 97530; 97535; G0515; J7620

== ENCOUNTER 2018-12-23 14:07 | Emergency (ER) | payer OTHER, MEDICARE ==
[~2018-12-23] VITALS: Ht 160 cm; Wt 37.0 kg
[2018-12-23] MEDS ORDERED: SODIUM CHLORIDE 0.9% 1,000 ML IV ONE (14:44)
[2018-12-23 15:22] LABS: BASOPHILS % 0.4 % (0.0-2.0); EOSINOPHILS % 3.3 % (0.0-5.0); HEMATOCRIT. 24.6 % (36.0-48.0); LYMPHOCYTES % 29.5 % (20.0-50.0); MEAN CORPUSCULAR HEMOGLOBIN 33.2 pg (28.0-32.0); MEAN CORPUSCULAR VOLUME 102.2 fL (81.0-99.0); MEAN PLATELET VOLUME 8.6 fl (7.4-10.4); MONOCYTES % 10.1 % (2.0-8.0); NEUTROPHILS % 56.7 % (40.0-76.0); PLATELET 205 x1000/uL (130-400); RED CELL DISTRIBUTION WIDTH 14.8 % (11.6-14.6)
[2018-12-23 15:24] LABS: CHLORIDE 112 mEq/L (98-107)
[2018-12-23 16:46] LABS: CLARITY URINE CLEAR (CLEAR); COLOR URINE YELLOW (YELLOW); KETONES URINE NEGATIVE (NEGATIVE); LEUKOCYTE ESTERASE URINE 2+ (NEGATIVE); NITRITE URINE NEGATIVE (NEGATIVE); OCCULT BLOOD URINE 1+ (NEGATIVE); PROTEIN URINE NEGATIVE (NEGATIVE); SPECIFIC GRAVITY URINE 1.017 (1.005-1.030); UROBILINOGEN URINE 0.2 E.U./dL (0.2-1.0)
[2018-12-23 17:38] VITALS: BP 115/46
== END 2018-12-23 17:40 | disposition home or self-care (01) ==
LOC: ER 15:10
DX: N39.0 Urinary tract infection, site not specified (principal); R03.0 Elevated blood-pressure reading, without diagnosis of hypertension; F17.210 Nicotine dependence, cigarettes, uncomplicated; Z71.6 Tobacco abuse counseling
CPT/HCPCS: 36415; 70450; 80053; 81003; 84484; 85025; 87086; 93005; 96360; 99284; 99406; J7030

== ENCOUNTER 2019-08-15 19:09 | Inpatient (IN) | payer MEDICARE, OTHER ==
[~2019-08-15] VITALS: Ht 160 cm; Wt 40.8 kg
[2019-08-15] MEDS ORDERED: ONDANSETRON HCL 4MG/2ML INJ IV STA (22:23)
[2019-08-15] MEDS ORDERED: SODIUM CHLORIDE 0.9% 1,000 ML IV ONE (22:23)
[2019-08-15] MEDS ORDERED: MORPHINE SULFATE 4 MG/ML CPJ (NOT FOR IM USE) IV STA (22:23)
[2019-08-15] MEDS ORDERED: HYDRALAZINE 20MG/ML VIAL IV ONE (22:30)
[2019-08-15 23:02] LABS: BASOPHILS % 0.6 % (0.0-2.0); CLARITY URINE CLOUDY (CLEAR); COLOR URINE YELLOW (YELLOW); EOSINOPHILS % 1.3 % (0.0-5.0); HEMATOCRIT. 39.6 % (36.0-48.0); HEMOGLOBIN. 12.6 g/dL (12.0-16.0); KETONES URINE NEGATIVE (NEGATIVE); LEUKOCYTE ESTERASE URINE 2+ (NEGATIVE); LYMPHOCYTES % 14.6 % (20.0-50.0); MEAN CORPUSCULAR HEMOGLOBIN 26.4 pg (28.0-32.0); MEAN CORPUSCULAR VOLUME 82.7 fL (81.0-99.0); MEAN PLATELET VOLUME 10.3 fl (7.4-10.4); MONOCYTES % 8.6 % (2.0-8.0); NEUTROPHILS % 74.9 % (40.0-76.0); NITRITE URINE NEGATIVE (NEGATIVE); OCCULT BLOOD URINE NEGATIVE (NEGATIVE); PLATELET 204 x1000/uL (130-400); PROTEIN URINE 1+ (NEGATIVE); RED BLOOD CELL COUNT 4.78 mill/uL (4.2-5.4); RED CELL DISTRIBUTION WIDTH 19.3 % (11.6-14.6); SPECIFIC GRAVITY URINE 1.024 (1.005-1.030); UROBILINOGEN URINE 0.2 E.U./dL (0.2-1.0)
[2019-08-15 23:07] LABS: CHLORIDE 102 mEq/L (98-107)
[2019-08-15 23:10] LABS: PARTIAL THROMBOPLASTIN TIME 22.6 sec (23.4-31.0); PROTHROMBIN TIME 10.7 sec (9.6-11.0)
[2019-08-15 23:11] LABS: ETHANOL BLOOD < 10 mg/dL
[2019-08-15 23:14] LABS: *AMPHETAMINES SCREEN URINE NEGATIVE (NEGATIVE); *BARBITURATES SCREEN URINE NEGATIVE (NEGATIVE)
[2019-08-15 23:15] LABS: *BENZODIAZEPINES SCREEN URINE NEGATIVE (NEGATIVE); *COCAINE SCREEN URINE NEGATIVE (NEGATIVE); CANNABINOID URINE SCREEN NEGATIVE (NEGATIVE); METHADONE URINE SCREEN NEGATIVE (NEGATIVE); OPIATES URINE SCREEN NEGATIVE (NEGATIVE); PHENCYCLIDINE URINE SCREEN NEGATIVE (NEGATIVE)
[2019-08-16] MEDS ORDERED: CEFTRIAXONE 1 G PREMIX 50 ML IV ONE (00:45)
[2019-08-16 16:00] VITALS: BP 149/76
[2019-08-16 17:18] VITALS: BP 152/76
[2019-08-16] MEDS ORDERED: DOCUSATE SODIUM 250MG CAPSULE PO PRN (17:45)
[2019-08-16] MEDS ORDERED: IPRATROPIUM/ALBUTEROL 0.5-3(2.5)MG/3ML NEB HHN PRN (18:09)
[2019-08-16] MEDS ORDERED: POTASSIUM CHLORIDE 20MEQ TABLET SR PO NR (18:15)
[2019-08-16] MEDS: THIAMINE HCL 100MG TABLET PO SCH (18:40)
[2019-08-16] MEDS: FUROSEMIDE 40MG/4ML VIAL IVP SCH (18:41)
[2019-08-16] MEDS: FOLIC ACID 1MG TABLET PO SCH (18:41)
[2019-08-16] MEDS: ASPIRIN 81MG TABLET PO SCH (18:41)
[2019-08-16 20:00] VITALS: BP 131/81
[2019-08-17] VITALS: BP 142/83
[2019-08-17 04:00] VITALS: BP 117/78
[2019-08-17] MEDS: LEVOTHYROXINE SODIUM 25MCG TABLET PO SCH (05:53)
[2019-08-17] MEDS ORDERED: POTASSIUM CHLORIDE 20MEQ TABLET SR PO NR ×2 (06:00→18:00)
[2019-08-17 08:00] VITALS: BP 144/63
[2019-08-17] MEDS: THIAMINE HCL 100MG TABLET PO SCH (09:40)
[2019-08-17] MEDS: FOLIC ACID 1MG TABLET PO SCH (09:40)
[2019-08-17] MEDS: ASPIRIN 81MG TABLET PO SCH (09:40)
[2019-08-17] MEDS: FUROSEMIDE 40MG/4ML VIAL IVP SCH (09:40)
[2019-08-17] MEDS: HYDROCODONE/ACETAMINOPHEN 5/325MG TABLET PO PRN ×3 (11:05→19:50)
[2019-08-17] MEDS ORDERED: ONDANSETRON HCL 4MG/2ML INJ IV PRN (11:30)
[2019-08-17 12:00] VITALS: BP 166/72
[2019-08-17] MEDS ORDERED: DIPHENHYDRAMINE 50MG/ML VIAL IV PRN (15:15)
[2019-08-17 16:00] VITALS: BP 120/63
[2019-08-17 20:00] VITALS: BP 97/55
[2019-08-18] VITALS (7 sets, daily range): BP systolic 121–145; BP diastolic 55–74
[2019-08-18] MEDS: HYDROCODONE/ACETAMINOPHEN 5/325MG TABLET PO PRN ×2 (03:51→17:41)
[2019-08-18] MEDS: LEVOTHYROXINE SODIUM 25MCG TABLET PO SCH (06:37)
[2019-08-18 06:46] LABS: BASOPHILS % 0.5 % (0.0-2.0); EOSINOPHILS % 1.6 % (0.0-5.0); HEMATOCRIT. 37.4 % (36.0-48.0); HEMOGLOBIN. 11.8 g/dL (12.0-16.0); LYMPHOCYTES % 16.2 % (20.0-50.0); MEAN CORPUSCULAR HEMOGLOBIN 26.6 pg (28.0-32.0); MEAN CORPUSCULAR VOLUME 84.2 fL (81.0-99.0); MEAN PLATELET VOLUME 10.2 fl (7.4-10.4); MONOCYTES % 8.6 % (2.0-8.0); NEUTROPHILS % 73.1 % (40.0-76.0); PLATELET 178 x1000/uL (130-400); RED BLOOD CELL COUNT 4.44 mill/uL (4.2-5.4); RED CELL DISTRIBUTION WIDTH 19.6 % (11.6-14.6)
[2019-08-18 07:13] LABS: CHLORIDE 105 mEq/L (98-107)
[2019-08-18] MEDS: THIAMINE HCL 100MG TABLET PO SCH (08:42)
[2019-08-18] MEDS: FOLIC ACID 1MG TABLET PO SCH (08:42)
[2019-08-18] MEDS: ASPIRIN 81MG TABLET PO SCH (08:42)
[2019-08-18] MEDS: FUROSEMIDE 40MG/4ML VIAL IVP SCH (08:42)
[2019-08-18] MEDS ORDERED: SODIUM POLYSTYRENE SULFONATE 15 G/60 ML BOT PO NR (11:00)
[2019-08-18] MEDS ORDERED: FUROSEMIDE 40MG TABLET PO NR (14:30)
[2019-08-18] MEDS: CARVEDILOL 3.125 MG TABLET PO SCH ×2 (15:28→21:31)
[2019-08-19] VITALS: BP 150/75
[2019-08-19 04:00] VITALS: BP 156/84
[2019-08-19] MEDS: LEVOTHYROXINE SODIUM 25MCG TABLET PO SCH (06:03)
[2019-08-19 07:09] LABS: BASOPHILS % 0.5 % (0.0-2.0); EOSINOPHILS % 2.1 % (0.0-5.0); HEMATOCRIT. 37.3 % (36.0-48.0); HEMOGLOBIN. 12.1 g/dL (12.0-16.0); LYMPHOCYTES % 14.6 % (20.0-50.0); MEAN CORPUSCULAR HEMOGLOBIN 26.6 pg (28.0-32.0); MEAN CORPUSCULAR VOLUME 82.1 fL (81.0-99.0); MEAN PLATELET VOLUME 10.2 fl (7.4-10.4); MONOCYTES % 8.2 % (2.0-8.0); NEUTROPHILS % 74.6 % (40.0-76.0); PLATELET 223 x1000/uL (130-400); RED BLOOD CELL COUNT 4.54 mill/uL (4.2-5.4); RED CELL DISTRIBUTION WIDTH 19.6 % (11.6-14.6)
[2019-08-19 07:31] LABS: CHLORIDE 101 mEq/L (98-107)
[2019-08-19 08:00] VITALS: BP 122/83
[2019-08-19] MEDS: THIAMINE HCL 100MG TABLET PO SCH (08:59)
[2019-08-19] MEDS: FOLIC ACID 1MG TABLET PO SCH (08:59)
[2019-08-19] MEDS: CARVEDILOL 3.125 MG TABLET PO SCH (08:59)
[2019-08-19] MEDS: ASPIRIN 81MG TABLET PO SCH (08:59)
[2019-08-19] MEDS ORDERED: FUROSEMIDE 40MG TABLET PO SCH (09:00)
[2019-08-19 12:00] VITALS: BP 106/72
[2019-08-19 13:29] VITALS: BP 106/72
== END 2019-08-19 16:05 | disposition home or self-care (01) | DRG 291 ==
LOC: ER 19:09 → 5WST 08-16 00:57 → EDBEDREQ 08-16 01:02 → EDBEDREQTM 08-16 01:02 → EDBEDREQDT 08-16 01:02 → ER 08-16 09:04 → EDBEDREQ 08-16 11:45 → ENRESERV 08-16 15:44
PROVIDERS: ADMIT Internal Medicine; ATTEND Internal Medicine
DX: I11.0 Hypertensive heart disease with heart failure (principal); J96.20 Acute and chronic respiratory failure, unspecified whether with hypoxia or hypercapnia; N39.0 Urinary tract infection, site not specified; J44.1 Chronic obstructive pulmonary disease with (acute) exacerbation; R64 Cachexia; F11.20 Opioid dependence, uncomplicated; K86.1 Other chronic pancreatitis; G93.49 Other encephalopathy; Z68.1 Body mass index [BMI] 19.9 or less, adult; I50.23 Acute on chronic systolic (congestive) heart failure; D63.8 Anemia in other chronic diseases classified elsewhere; E03.9 Hypothyroidism, unspecified; E11.9 Type 2 diabetes mellitus without complications; F03.90 Unspecified dementia, unspecified severity, without behavioral disturbance, psychotic disturbance, mood disturbance, and anxiety; F17.210 Nicotine dependence, cigarettes, uncomplicated; I25.10 Atherosclerotic heart disease of native coronary artery without angina pectoris; I71.4 Abdominal aortic aneurysm, without rupture; F10.20 Alcohol dependence, uncomplicated; N20.0 Calculus of kidney; F32.9 Major depressive disorder, single episode, unspecified; J32.0 Chronic maxillary sinusitis; M06.9 Rheumatoid arthritis, unspecified; K57.90 Diverticulosis of intestine, part unspecified, without perforation or abscess without bleeding; L98.499 Non-pressure chronic ulcer of skin of other sites with unspecified severity; G89.29 Other chronic pain; I49.3 Ventricular premature depolarization; I25.2 Old myocardial infarction; Z91.19 Patient's noncompliance with other medical treatment and regimen; Z86.73 Personal history of transient ischemic attack (TIA), and cerebral infarction without residual deficits; Z87.01 Personal history of pneumonia (recurrent); Z87.442 Personal history of urinary calculi; Z79.899 Other long term (current) drug therapy
CPT/HCPCS: 36415; 70551; 71045; 74176; 76700; 80048; 80053; 80076; 80305; 80320; 81003; 83880; 84484; 85025; 93005; 93306; 93970; 99285; J0696; J1940; J2270; J2405; J7030; G0480